=== PATIENT | female | born 1995 | race Caucasian/White ===

== ENCOUNTER 2018-02-13 17:46 | Emergency (ER) | payer OTHER ==
[~2018-02-13] VITALS: Ht 170.2 cm; Wt 53.9 kg
[~2018-02-13 17:46] MED LIST: TORADOL10 MG PO; ZOFRAN ODT4 MG PO
[2018-02-13 18:25] LABS: HEMATOCRIT 40.4 % (36.0-46.0); HEMOGLOBIN 13.7 G/DL (11.9-15.5); MCH 29.8 PG (29.0-34.0); MCHC 33.9 G/DL (30.0-36.0); PLATELET COUNT 162 K/uL (156-360); RBC DIS.WIDTH-CV 12.3 % (11.8-14.6); RBC DIS.WIDTH-SD 39.9 % (39-53); RED BLOOD COUNT 4.59 M/uL (3.80-5.20)
[2018-02-13 18:38] LABS: CHLORIDE 105 mEq/L (99-109); POTASSIUM 3.2 mEq/L (3.7-5.4); SODIUM 143 mEq/L (136-147)
[2018-02-13 18:39] LABS: GLUCOSE 99 mg/dL (70-99)
[2018-02-13 18:43] LABS: CREATININE 0.8 mg/dL (0.6-1.3); GFR ESTIMATE (CALCULATED) > 59 mL/min/
[2018-02-13 18:44] LABS: UREA NITROGEN (BUN) 12 mg/dL (9-23)
[2018-02-13 18:49] LABS: TROP-I INTERPRETATION NEGATIVE; TROPONIN-I < 0.01 ng/mL (0.0-0.30)
[2018-02-13 19:47] LABS: D-DIMER ELISA < 150.00 ng/mLDDU (<230)
[2018-02-13 20:13] LABS: ALBUMIN 4.6 g/dL (3.2-4.8)
[2018-02-13 20:15] LABS: TOTAL PROTEIN 7.8 g/dL (6.4-8.3)
[2018-02-13 20:17] LABS: TOTAL BILIRUBIN 0.3 mg/dL (0.0-1.0)
[2018-02-13 20:18] LABS: ALKALINE PHOSPHATASE 59 IU/L (3-129)
[2018-02-13 20:21] LABS: ALT (GPT) 8 IU/L (3-49); AST (GOT) 12 IU/L (2-34); DIRECT BILIRUBIN 0.2 mg/dL (0.0-0.3)
[2018-02-13 20:22] LABS: LIPASE 34 U/L (1.0-51.0)
[2018-02-13] MEDS ORDERED: PROTONIX40 MG PO (21:10)
[2018-02-13] MEDS ORDERED: ZANTAC300 MG PO (21:10)
[2018-02-13 21:51] VITALS: BP 136/87
== END 2018-02-13 21:52 | disposition home or self-care (01) ==
LOC: EME 17:46
PROVIDERS: Physician Assistant
DX: R10.13 Epigastric pain (principal); R07.89 Other chest pain; E87.6 Hypokalemia; R03.0 Elevated blood-pressure reading, without diagnosis of hypertension; M54.9 Dorsalgia, unspecified; I45.10 Unspecified right bundle-branch block; I49.8 Other specified cardiac arrhythmias
CPT/HCPCS: 71046; 80048; 80076; 83690; 84484; 85027; 85379; 93005; 99281; 99284